=== PATIENT | female | born 1960 | race Caucasian/White ===

== ENCOUNTER 2020-05-10 01:05 | Emergency (ER) | payer OTHER ==
[~2020-05-10] VITALS: Ht 167.6 cm; Wt 97.1 kg
[2020-05-10] MEDS ORDERED: GABAPENTIN600 M1 PO (01:53)
[2020-05-10] MEDS ORDERED: MELATONIN5 M4 PO (01:54)
[2020-05-10] MEDS ORDERED: CYCLOBENZAPRINE10 MG PO (01:54)
[2020-05-10] MEDS ORDERED: OXYCODONE PO (01:55)
[2020-05-10] MEDS ORDERED: LANTUS100 UNIT/M SUBQ (01:56)
[2020-05-10] MEDS ORDERED: HUMALOG100 UNIT/1 SUBQ (01:56)
[2020-05-10] MEDS ORDERED: AMITRIPTYLINE H10 M1 PO (01:57)
[2020-05-10] MEDS ORDERED: ASA81BEC PO (01:57)
[2020-05-10] MEDS ORDERED: LABETALOL HCL300 MG PO (01:58)
[2020-05-10] MEDS ORDERED: CARVEDILOL12.5 MG PO (01:59)
[2020-05-10 02:04] LABS: ABSOLUTE NEUTROPHILS 6.5 thou/uL (1.4-8.2); BASOPHILS 1.2 % (0.0-2.0); EOSINOPHILS 2.9 % (0.0-3.0); HEMATOCRIT 38.7 % (37.0-47.0); LYMPHOCYTES 18.3 % (24.0-44.0); MCH 29.2 pg (26.0-34.0); MCHC 33.5 g/dL (28.0-37.0); MONOCYTES 6.1 % (1.0-8.0); PLATELET COUNT 261 thou/uL (150-400); POLYS 71.5 % (36.0-66.0); RBC 4.45 mil/uL (4.20-5.00)
[2020-05-10 02:27] LABS: URINE BILIRUBIN NEGATIVE (Negative); URINE BLOOD 1+ (Negative); URINE CLARITY CLOUDY; URINE COLOR YELLOW; URINE GLUCOSE-RANDOM* NEGATIVE (Negative); URINE KETONES NEGATIVE (Negative); URINE PROTEIN (DIPSTICK) NEGATIVE (Negative); URINE SPECIFIC GRAVITY 1.015 (1.005-1.035)
[2020-05-10 02:54] LABS: URINE LEUKOCYTES-REFLEX 3+ (Negative); URINE NITRITE-REFLEX POSITIVE (Negative)
[2020-05-10 02:56] LABS: BACTERIA-REFLEX 1-9 Few /HPF (None Seen); CASTS None Seen /LPF (None Seen); CRYSTALS None Seen /LPF (None Seen); MUCUS 0-3 Light strn/LPF (None Seen); SQUAMOUS 0-3 Few /LPF (0-3); URINE RBC 3-10 Few /HPF (0-2); URINE WBC-REFLEX >25 Many /HPF (0-5)
[2020-05-10 03:07] LABS: CALCIUM 9.2 mg/dL (8.5-10.1); CREATININE 0.7 mg/dL (0.6-1.0); MAGNESIUM 1.7 mg/dL (1.8-2.4); POTASSIUM 3.4 mmol/L (3.5-5.1)
[2020-05-10 05:10] VITALS: BP 202/115
--- NOTE | 2020-05-10 12:18 | EKG ---
[facility] [place] [address] ELECTROCARDIOGRAM REPORT Name: DRE AREVALO Room #: DEP [facility]#: [id number] Admission: 05/10/20 Attend Phys: Discharge: 05/10/20 Date of : 64 Report #: [id number] THIS REPORT FOR: cc: Roby Louis MD, Daniel C. MD Santiago, Patrick MD [facility] ~ THIS REPORT FOR: //name// [facility] ED Test Date: 2020-05-10 Test Time: 01:30:30 Pat Name: DRE AREVALO Department: Room: Gender: Health Science Specialist: TBARNES : 1960 Requested By: Mikhail Puga Order Number: [id number] MD: Fletcher Frias Measurements Intervals [place] Rate: 91 P: 15 ME: 154 QRS: -16 QRSD: 90 T: 30 QT: 369 QTc: 455 Interpretive Statements Sinus rhythm Probable left atrial enlargement Left ventricular hypertrophy Baseline wander in lead(s) V1 No previous ECG available for comparison Electronically Signed On 05-10-2020 12:17:58 MEDICAL CLERICAL ASSISTANT by Fletcher Frias [email or web address] <ELECTRONICALLY SIGNED> By: Fletcher Frias MD, FACC 05/10/20 1217 013 0130 Fletcher Frias MD, FACC /EPI
== END 2020-05-10 05:26 | disposition home or self-care (01) ==
LOC: ER 01:05
PROVIDERS: Emergency Medicine
DX: R44.1 Visual hallucinations (principal); I10 Essential (primary) hypertension; Z79.82 Long term (current) use of aspirin; Z79.899 Other long term (current) drug therapy; Z88.0 Allergy status to penicillin; Z91.012 Allergy to eggs